=== PATIENT | male | born 1945 | race Caucasian/White ===

== ENCOUNTER 2019-11-05 10:57 | Emergency (ER) | payer MEDICARE ==
[2019-11-05] MEDS ORDERED: SODIUM CHLORIDE 0.9% 500 ML 500 ML IV STA (11:36)
[2019-11-05 11:44] LABS: Appearance,Urine Clear (Clear); Bacteria,Urine Rare /hpf; Bilirubin,Urine Negative (Negative); Blood,Urine Trace (Negative); Color,Urine Yellow; Glucose,Urine (UA) Negative (Negative); Ketones,Urine Negative (Negative); Leukocyte Esterase,Urine Negative (Negative); Mucus,Urine Rare /hpf; Nitrite,Urine Negative (Negative); Protein,Urine 1+ (Negative); RBC,Urine 4 /hpf (0-5); Specific Gravity,Urine 1.018 (1.001-1.035); Urobilinogen,Urine <2.0 mg/dL (<2.0); WBC,Urine <1 /hpf (0-5)
[2019-11-05 12:13] LABS: Basophils # (A) 0.1 k/uL (0-0.2); Basophils % (A) 1 %; Eosinophils # (A) 0.2 k/uL (0-0.7); Eosinophils % (A) 3 %; HCT 44.7 % (39.0-53.0); HGB 15.1 gm/dL (13.0-17.5); Lymphocytes # (A) 1.6 k/uL (1.0-4.8); Lymphocytes % (A) 19 %; MCH 31.7 pg (25.0-35.0); MCHC 33.8 g/dL (31.0-37.0); MCV 93.9 fL (80.0-100.0); Mean Platelet Volume 7.1; Monocytes # (A) 0.5 k/uL (0-1.0); Monocytes % (A) 6 %; Neutrophils # (A) 6.2 k/uL (1.3-7.7); Neutrophils % (A) 71 %; Platelet Count 259 k/uL (150-450); RBC 4.76 m/uL (4.30-5.90); RDW 13.3 % (11.5-15.5); WBC 8.7 k/uL (3.8-10.6)
[2019-11-05 12:19] LABS: Albumin 4.3 g/dL (3.5-5.0); Calcium 9.5 mg/dL (8.4-10.2); Potassium 4.4 mmol/L (3.5-5.1); Total Bilirubin 0.5 mg/dL (0.2-1.3); Total Protein 7.7 g/dL (6.3-8.2)
--- NOTE | 2019-11-05 12:35 | XR ---
EXAMINATION TYPE: XR chest 1V, XR skull complete, XR abdomen 1V DATE OF EXAM: 11/05/2019 COMPARISON: NONE HISTORY: 74-year-old male shunt study, weakness and fatigue discoloration TECHNIQUE: Single frontal view of the chest is obtained. FINDINGS: Skull: There is a right-sided frontoparietal shunt. The tip appears just to the left of midline in the centr al and frontal region. Radiolucent segments of the shunt system along the right lateral calvarium. Re mainder of the shunt catheter appears intact. Abandoned fragment of a shunt catheter along the right posterolateral aspect of the neck. Posterior cervical fusion hardware. CHEST: Heart normal size. Elongation/ectasia of the thoracic aorta. Diffuse interstitial prominence of a chr onic appearance. No consolidation or pleural effusion. Abandoned shunt catheter fragment extending do wn the right base of the neck and upper to mid thorax. The viable shunt catheter courses down the rig ht side of the thorax and then extends to the midline at the lower thorax. ABDOMEN: LEASE BROKER shunt catheter courses to the midline of the thoracoabdominal junction and down the upper to mid a bdomen and is seen looped within the pelvis. No obvious catheter discontinuity. No dilated small bowel or differential air-fluid levels. No evidence for free intraperitoneal air. Small air-fluid levels left side of the abdomen are nonspecific, probably transient. Scattered air se en throughout the colon extending distally into the rectum. L4-L5 posterior lumbar fusion hardware. IMPRESSION: 1. Right-sided frontoparietal approach LEASE BROKER shunt catheter. The tip is just to the left of midline in t he central and frontal region. 2. Catheter courses down the right side and then has a midline position at the thoracoabdominal junct ion, continuing down, and looping in the pelvis. 3. Additional abandoned shunt catheter fragment along the right side of the neck and upper right pamella thorax.
--- NOTE | 2019-11-05 12:42 | ED ---
General Adult HPI - General Chief complaint: Urogenital Stated complaint: possible UTI/lower extremity issues Time Seen by Provider: 11/05/19 11:05 Source: patient Mode of arrival: wheelchair Limitations: no limitations - History of Present Illness Initial comments: The patient is a 74-year-old male with past medical history of depression, urinary tract infections and normal pressure hydrocephalus with shunt placement who presents to the emergency department with reported worsening confusion and balance issues. The patient's son is at bedside and helps provide history. He states that his father was hospitalized in September with similar symptoms. They found that he had a urinary tract infection. He does have incontinence issues and wears depends. Frequently does not change them because he has significant depression. He was hospitalized and then went to rehab. Son states that since he has been home for the past several weeks he seen a significant decline in his father status. States that he hasn't been out of bed, eaten or showered. He went to check on his father today and noted that he had significant discoloration to his feet. There were purple in color and cold to the touch. His father reported some paresthesias in his lower extremities however states that it has since gone away. Denies previous history of this in the past. The patient currently denies any pain. Not oriented as far as the month. Patient does feel somewhat confused. Denies any headaches or visual changes currently. No nausea or vomiting. Denies any chest pain or shortness of breath. No abdominal pain. Denies back or flank pain. No fevers or chills. Denies cough. Does admit to some dysuria. Denies hematuria or difficulty voiding. Denies diarrhea, constipation, melenic stools or hematochezia. The patient does live alone and states he is significantly depressed. Son reports hospitalization multiple times at psychiatric facilities - Related Data Home Medications Medication Instructions Recorded Confirmed Acetaminophen Tab [Tylenol] 650 mg PO Q6H PRN 11/05/19 11/05/19 Alfuzosin HCl [Alfuzosin HCl ER] 10 mg PO DAILY 11/05/19 11/05/19 Docusate [Colace] 100 mg PO DAILY 11/05/19 11/05/19 Escitalopram [Lexapro] 10 mg PO DAILY 11/05/19 11/05/19 Famotidine [Pepcid] 40 mg PO DAILY 11/05/19 11/05/19 Gabapentin [Neurontin] 100 mg PO DAILY 11/05/19 11/05/19 Lidocaine 5% Patch [Lidoderm] 1 patch TOPICAL DAILY 11/05/19 11/05/19 Losartan [Cozaar] 25 mg PO DAILY 11/05/19 11/05/19 Menthol-Zinc Oxide Oint 1 applic TOPICAL DAILY PRN 11/05/19 11/05/19 [Calmoseptine Oint] Methocarbamol [Robaxin] 750 mg PO Q8H 11/05/19 11/05/19 Multivitamins, Thera [Multivitamin 1 tab PO DAILY 11/05/19 11/05/19 (formulary)] Tamsulosin [Flomax] 0.4 mg PO DAILY 11/05/19 11/05/19 Zolpidem [Ambien] 10 mg PO HS PRN 11/05/19 11/05/19 traMADol HCL 50 mg PO Q4H PRN 11/05/19 11/05/19 Allergies Allergy/AdvReac Type Severity Reaction Status Date / Time No Known Allergies Allergy Verified 11/05/19 12:03 Review of Systems ROS Statement: Those systems with pertinent positive or pertinent negative responses have been documented in the HPI. ROS Other: All systems not noted in ROS Statement are negative. Past Medical History Past Medical History: Hypertension Additional Past Medical History / Comment(s): neuropathy History of Any Multi-Drug Resistant Organisms: None Reported Additional Past Surgical History / Comment(s): brain shunt, neck fusion Past Psychological History: Depression Smoking Status: Never smoker Past Alcohol Use History: None Reported Past Drug Use History: None Reported General Exam Limitations: no limitations General appearance: alert, in no apparent distress Head exam: Present: atraumatic, normocephalic, normal inspection Eye exam: Present: normal appearance, PERRL, EOMI. Absent: scleral icterus, conjunctival injection, periorbital swelling ENT exam: Present: normal exam, mucous membranes moist Neck exam: Present: normal inspection. Absent: tenderness, meningismus, lymph adenopathy Respiratory exam: Present: normal lung sounds bilaterally. Absent: respiratory distress, wheezes, rales, rhonchi, stridor Cardiovascular Exam: Present: regular rate, normal rhythm, normal heart sounds. Absent: systolic murmur, diastolic murmur, rubs, gallop, clicks GI/Abdominal exam: Present: soft, normal bowel sounds. Absent: distended, tenderness, guarding, rebound, rigid Extremities exam: Present: normal inspection, full ROM, normal capillary refill. Absent: tenderness, pedal edema, joint swelling, calf tenderness Back exam: Present: normal inspection Neurological exam: Present: alert, oriented X3, CN II-XII intact Psychiatric exam: Present: normal affect, normal mood Skin exam: Present: warm, dry, intact, normal color. Absent: rash Course Vital Signs 11/05/19 11/05/19 11/05/19 11:02 11:58 12:00 Temperature 97.7 F Pulse Rate 88 74 79 Respiratory 18 19 18 Rate Blood Pressure 208/125 163/97 O2 Sat by Pulse 99 97 95 Oximetry 11/05/19 11/05/19 11/05/19 12:30 13:00 13:30 Temperature Pulse Rate 81 82 80 Respiratory 17 17 18 Rate Blood Pressure 178/102 146/90 165/109 O2 Sat by Pulse 98 97 96 Oximetry 11/05/19 11/05/19 11/05/19 14:00 14:30 14:31 Temperature 98.5 F Pulse Rate 70 82 80 Respiratory 16 16 18 Rate Blood Pressure 177/99 176/104 183/106 O2 Sat by Pulse 97 99 99 Oximetry 11/05/19 11/05/19 11/05/19 15:00 15:30 16:00 Temperature Pulse Rate 75 73 71 Respiratory 15 17 18 Rate Blood Pressure 183/106 176/92 176/108 O2 Sat by Pulse 96 96 98 Oximetry 11/05/19 11/05/19 16:30 17:23 Temperature Pulse Rate 72 71 Respiratory 7 L 18 Rate Blood Pressure 170/102 170/98 O2 Sat by Pulse 97 98 Oximetry EKG Findings - EKG Comments: EKG Findings:: EKG demonstrates normal sinus rhythm with a ventricular rate of 77. Urine of 160. QRS 78. QTC of 452. Inverted T-wave in lead 3. No acute ST segment elevations. Medical Decision Making - Medical Decision Making Upon arrival the patient was placed in room 11. A thorough history and physical exam was performed. Laboratory studies were conducted. The patient went for a shunt study, CT of his brain and a CT of his abdomen and pelvis with runoff because of his reported paresthesias and purple discoloration of his lower extremities. Laboratory studies demonstrate a creatinine of 1.3. Urinalysis shows rare bacteria. Shunt series demonstrates that the shunt appears to be appropriate position. CT of the brain demonstrates severe hydrocephalus with concern for malfunctioning shunt. CT of the lower extremity demonstrates anterior tibial artery becomes severely diminutive just above the ankle, probably artery becomes negative of the distal third leg. Runoff via the posterior tibial artery of the posterior tibial arteries no longer seen at the hindfoot level. Patient does have good palpable pulses. I discussed the case with the patient. He did have his shunt originally placed at [facility] by Dr. Lana Barahona. I called and discussed the case with [facility] and they state that Dr. Barahona is not on staff and all other cases go to [facility]. I called and discussed case with [facility] at 2:30 pm they are calling their medical team to see if it's okay to accept the transfer the patient. Call was returned from [facility] at 3:20 pm. I spoke with Dr. Balaji Robert who is a neurosurgeon at their facility. He denies transfer the patient. He states that he is not concerned about the patient symptoms and the patient should go home and follow up in office. He does review CT scans from August of this year that he has availability to it at his facility. He states the patient has always had extreme hydrocephalus. He states he is not concerned about the patient's new symptoms. I discussed this with the patient's family. I at this time then called [facility] to discuss possible transfer with them. They state they are not accepting any ER transfers. At 4:13 pm we are attempting to contact Dr. Barahona directly. We did page Dr. Barahona for a second time at 4:50 PM. She does return my phone call at [phone]. I discussed the case with her. She does recommend that the best option would be The patient follow up in office. She states that she does not believe that the patient's shunt is not functioning as he always does have severe hydrocephalus. She does not want to transfer the patient is [facility] because of the covid outbreak. I discussed this with the patient's family. They are agreeable to discharge home and follow up in office tomorrow with Dr. Barahona. I informed them that if the patient is evaluated and it is deemed that the patient's symptoms are not due to the shunt but the patient is still having issues that he should return back to her hospital for admission and possible rehab. The patient and his son were on board with this. The patient was given a dose of Rocephin further rare bacteria in his urine. He is discharged home in stable condition - Lab Data Result diagrams: 11/05/19 11:57 11/05/19 11:57 Lab Results 11/05/19 11/05/19 11/05/19 Range/Units 11:33 11:57 11:57 WBC 8.7 (3.8-10.6) k/uL RBC 4.76 (4.30-5.90) m/uL Hgb 15.1 (13.0-17.5) gm/dL Hct 44.7 (39.0-53.0) % MCV 93.9 (80.0-100.0) fL MCH 31.7 (25.0-35.0) pg MCHC 33.8 (31.0-37.0) g/dL RDW 13.3 (11.5-15.5) % Plt Count 259 (150-450) k/uL Neutrophils % 71 % Lymphocytes % 19 % Monocytes % 6 % Eosinophils % 3 % Basophils % 1 % Neutrophils # 6.2 (1.3-7.7) k/uL Lymphocytes # 1.6 (1.0-4.8) k/uL Monocytes # 0.5 (0-1.0) k/uL Eosinophils # 0.2 (0-0.7) k/uL Basophils # 0.1 (0-0.2) k/uL Sodium 139 (137-145) mmol/L Potassium 4.4 (3.5-5.1) mmol/L Chloride 107 (98-107) mmol/L Carbon Dioxide 23 (22-30) mmol/L Anion Gap 9 mmol/L BUN 25 H (9-20) mg/dL Creatinine 1.30 H (0.66-1.25) mg/dL Est GFR (CKD-EPI)AfAm 63 (>60 ml/min/1.73 sqM) Est GFR (CKD-EPI)NonAf 54 (>60 ml/min/1.73 sqM) Glucose 101 H (74-99) mg/dL Plasma Lactic Acid Deon (0.7-2.0) mmol/L Calcium 9.5 (8.4-10.2) mg/dL Total Bilirubin 0.5 (0.2-1.3) mg/dL AST 17 (17-59) U/L ALT 12 (4-49) U/L Alkaline Phosphatase 73 (38-126) U/L Creatine Kinase 53 L (55-170) U/L Total Protein 7.7 (6.3-8.2) g/dL Albumin 4.3 (3.5-5.0) g/dL Urine Color Yellow Urine Appearance Clear (Clear) Urine pH 6.0 (5.0-8.0) Ur Specific [place] 1.018 (1.001-1.035) Urine Protein 1+ H (Negative) Urine Glucose (UA) Negative (Negative) Urine Ketones Negative (Negative) Urine Blood Trace H (Negative) Urine Nitrite Negative (Negative) Urine Bilirubin Negative (Negative) Urine Urobilinogen <2.0 (<2.0) mg/dL Ur Leukocyte Esterase Negative (Negative) Urine RBC 4 (0-5) /hpf Urine WBC <1 (0-5) /hpf Urine Bacteria Rare H (None) /hpf Urine Mucus Rare H (None) /hpf 11/05/19 Range/Units 11:57 WBC (3.8-10.6) k/uL RBC (4.30-5.90) m/uL Hgb (13.0-17.5) gm/dL Hct (39.0-53.0) % MCV (80.0-100.0) fL MCH (25.0-35.0) pg MCHC (31.0-37.0) g/dL RDW (11.5-15.5) % Plt Count (150-450) k/uL Neutrophils % % Lymphocytes % % Monocytes % % Eosinophils % % Basophils % % Neutrophils # (1.3-7.7) k/uL Lymphocytes # (1.0-4.8) k/uL Monocytes # (0-1.0) k/uL Eosinophils # (0-0.7) k/uL Basophils # (0-0.2) k/uL Sodium (137-145) mmol/L Potassium (3.5-5.1) mmol/L Chloride (98-107) mmol/L Carbon Dioxide (22-30) mmol/L Anion Gap mmol/L BUN (9-20) mg/dL Creatinine (0.66-1.25) mg/dL Est GFR (CKD-EPI)AfAm (>60 ml/min/1.73 sqM) Est GFR (CKD-EPI)NonAf (>60 ml/min/1.73 sqM) Glucose (74-99) mg/dL Plasma Lactic Acid Deon 1.1 (0.7-2.0) mmol/L Calcium (8.4-10.2) mg/dL Total Bilirubin (0.2-1.3) mg/dL AST (17-59) U/L ALT (4-49) U/L Alkaline Phosphatase (38-126) U/L Creatine Kinase (55-170) U/L Total Protein (6.3-8.2) g/dL Albumin (3.5-5.0) g/dL Urine Color Urine Appearance (Clear) Urine pH (5.0-8.0) Ur Specific [place] (1.001-1.035) Urine Protein (Negative) Urine Glucose (UA) (Negative) Urine Ketones (Negative) Urine Blood (Negative) Urine Nitrite (Negative) Urine Bilirubin (Negative) Urine Urobilinogen (<2.0) mg/dL Ur Leukocyte Esterase (Negative) Urine RBC (0-5) /hpf Urine WBC (0-5) /hpf Urine Bacteria (None) /hpf Urine Mucus (None) /hpf Disposition Clinical Impression: Weakness, Hydrocephalus Disposition: HOME SELF-CARE Condition: Stable Instructions (If sedation given, give patient instructions): Weakness (ED) Additional Instructions: Please call to make an appointment with Dr. Barahona and see her in office tomorrow. Return to the emergency room if you have any new or worsening symptoms Is patient prescribed a controlled substance at d/c from ED?: No Referrals: Shiva Naylor MD [Primary Care Provider] - 1-2 days Time of Disposition: 17:05
--- NOTE | 2019-11-05 13:03 | CT ---
EXAMINATION TYPE: CT brain wo con DATE OF EXAM: 11/05/2019 COMPARISON: None available HISTORY: 74-year-old male History of shunt and weakness. Discoloration of feet TECHNIQUE: Examination was done in axial plane without intravenous contrast. Coronal and sagittal r econstructions performed. CT DLP: 1208.4 mGycm Automated exposure control for dose reduction was used. FINDINGS: Right frontal approach PEEL OVEN TENDER shunt catheter. The tip of the catheter crosses the midline and is within t he anterior body of the left lateral ventricle. There is severe hydro-Cephalus but without midline sh ift. No effacement of basal subarachnoid cisterns. Maya-white matter differentiation is maintained. No herniation is seen. No evidence for acute intracranial hemorrhage or extra axial fluid collection . Some frothy partial opacification dependent within the right maxillary sinus. Mastoid air cells well pneumatized. Orbits and globes are intact. IMPRESSION: 1. Right-sided PEEL OVEN TENDER shunt catheter. Tip of the catheter is within the anterior body of the left lateral ventricle. 2. Severe hydrocephalus is present. Correlate for possible shunt dysfunction. Compare to any availabl e outside priors to assess changes. 3. No acute intracranial hemorrhage or midline shift.
--- NOTE | 2019-11-05 13:39 | CT ---
EXAMINATION TYPE: CT angio abd aorta w/Runoff DATE OF EXAM: 11/05/2019 COMPARISON: None HISTORY: 74-year-old male lower extremity discoloration, paresthesias. TECHNIQUE: Contiguous axial scanning of the abdomen and pelvis with bilateral lower sternum and a run off performed without and with IV Contrast, patient injected with 80 mL of Isovue 370. Coronal/sagitt al MIP reconstructions performed. 3-D reconstructions generated on a dedicated independent workstatio n. CT DLP: 1616.5 mGycm Automated exposure control for dose reduction was used. FINDINGS: Abdomen: Heart normal size without pericardial effusion. 6 mm subpleural pulmonary nodule peripheral left base warrants follow-up. No pleural effusion. Strand y areas of probable atelectasis are present. Noncontrast and arterial phase imaging shows no gross abnormality of the liver, gallbladder, adrenal glands, spleen, pancreas. Multiple hepatic cysts are present measuring up to 3.1 cm. Additional subcentimeter cortical hypodens ities are too small for accurate CT characterization, likely representing additional cortical cysts. Some renal cortical thinning suggests underlying chronic medical renal disease. No dilated small bowel, free fluid, or free air. No mesenteric or retroperitoneal lymphadenopathy. Mild stool burden. Sigmoid diverticulosis. Redundant sigmoid colon. No pericolonic inflammatory hawkins e. PELVIS: Visualized shunt catheter coursing down the right paramedian anterior midline. Entering the abdominal cavity near the umbilical level and looped within the pelvis. No abnormal fluid collection seen at t he tip of the catheter. Mild pelvic free fluid likely relates to the presence of the VARNISHING UNIT TOOL SETTER shunt. Mild bladder wall thickening. Prostatomegaly of 5.4 cm wide. Focus of heterogeneous enhancement withi n the right side of the prostate gland measuring 1.8 cm, axial image 131. No pelvic lymphadenopathy s een. BONES: Mild degenerative changes of the hips. Degenerative changes bilateral SI joints. Postsurgical changes of L4-L5 posterior fusion with laminectomies. Advanced degenerative disc disease throughout the yanna ining lumbar spine with facet arthropathy. Likely moderate spinal canal stenosis at multiple levels. Chronic appearing superior endplate deformity T11 vertebral body. VASCULATURE: Vascular calcifications are present throughout the lower extremities. Abdominal aorta is normal caliber without ectasia or aneurysm. Basilar artery are patent. Right: Right common and external iliac arteries are patent. Common femoral arteries patent. Mild atherosclerotic calcifications throughout the superficial femoral artery with irregular atherosc lerotic plaque noted but no significant narrowing. Mild atherosclerotic change popliteal artery without stenosis. Mild atherosclerotic narrowing at the origin of the anterior tibial artery. Atherosclerotic wall calc ifications are present throughout. Moderate focal stenosis upper tibial peroneal trunk, axial image 306. Scattered mild atherosclerotic narrowing throughout the runoff vessels. Anterior tibial artery become s severely diminutive just above the ankle. Peroneal artery becomes diminutive distal third leg. There is runoff via the posterior tibial artery but the posterior tibial artery is no longer seen at the hindfoot level. Left: The common and external iliac arteries are patent. Common femoral artery is patent. Mild atherosclerotic calcifications throughout the superficial femoral artery. No significant stenosi s. Popliteal artery is patent. Atherosclerotic wall calcifications are present throughout. Anterior tibial artery origin is patent. Mild focal atherosclerotic narrowing upper tibial peroneal trunk and origin of the posterior tibial a rtery. Scattered mild atherosclerotic narrowing is present throughout the runoff vessels. Anterior tibial artery is no longer visualized at the mid leg level. Peroneal artery becomes diminutive at the distal third leg. Posterior tibial artery becomes diminutive and loses opacification just above the ankle. IMPRESSION: ABDOMEN/PELVIS: 1. 6 MM LEFT BASILAR PULMONARY NODULE. THREE-MONTH FOLLOW-UP CONTRAST ENHANCED CT CHEST RECOMMENDED T O REASSESS AND SURVEY REMAINDER OF THE LUNGS. 2. Sigmoid diverticulosis. VARNISHING UNIT TOOL SETTER shunt catheter looped in the pelvis. No abnormal fluid collection at th e tip of the catheter. Mild pelvic ascites noted. 3. Prostatomegaly, possible BPH given bladder wall thickening. Correlate to exclude cystitis. However , further correlation recommended to exclude a 1.7 cm focus of prostate cancer within the right side of the prostate gland given heterogeneous focal enhancement. RIGHT: 4. Mild atherosclerotic calcifications and some irregular plaque throughout the SFA without significa nt narrowing. 5. Moderate focal stenosis upper tibial peroneal trunk and scattered mild atelectatic narrowing throu ghout the runoff vessels. 6. Anterior tibial artery becomes severely diminutive just above the ankle, peroneal artery becomes d iminutive distal third leg, and there is runoff via the posterior tibial artery but the posterior tib ial arteries no longer seen at the hindfoot level. LEFT: 7. Atherosclerotic wall calcifications are present throughout. Mild focal stenosis upper tibioperonea l trunk and origin of the posterior tibial artery. 8. Anterior tibial artery is no longer visualized at the mid leg level, peroneal artery diminutive at the distal third leg, and posterior tibial artery becomes diminutive and loses opacification just ab ove the ankle.
[2019-11-05 14:33] VITALS: TEMP 98.5
[2019-11-05] MEDS ORDERED: LOSARTAN 25 MG TAB PO STA (14:35)
[2019-11-05] MEDS ORDERED: cefTRIAXone IN SWFI 1,000 MG/10 ML SYRINGE IVP STA (17:06)
[2019-11-05 17:24] VITALS: BP 170/98; PULSE 71; RESP 18
== END 2019-11-05 17:16 | disposition home or self-care (01) ==
LOC: EC 10:57
DX: G91.9 Hydrocephalus, unspecified (principal); R53.1 Weakness; R20.2 Paresthesia of skin; R23.8 Other skin changes; R82.71 Bacteriuria; R30.0 Dysuria; I10 Essential (primary) hypertension; G62.9 Polyneuropathy, unspecified; F32.9 Major depressive disorder, single episode, unspecified; Z98.2 Presence of cerebrospinal fluid drainage device; Z79.899 Other long term (current) drug therapy
CPT/HCPCS: 99285; 96374; 96361; 36415; 93005; 80053; 82550; 83605; 85025; 81001; 70260; 71045; 74018; 70450; 75635; J0696; Q9967

== ENCOUNTER 2019-12-06 11:56 | Emergency (ER) | payer MEDICARE ==
[2019-12-06 12:02] VITALS: RESP 18; TEMP 97.9
[2019-12-06] MEDS ORDERED: hydrALAZINE HCL 20 MG/ML 1 ML VIAL IVP STA (12:29)
[2019-12-06] MEDS ORDERED: SODIUM CHLORIDE 0.9% 500 ML 500 ML IV STA (12:29)
--- NOTE | 2019-12-06 12:38 | ED ---
General Adult HPI - General Chief complaint: Weakness Stated complaint: Weakness Time Seen by Provider: 12/06/19 12:00 Source: patient, RN notes reviewed, old records reviewed Mode of arrival: wheelchair Limitations: no limitations - History of Present Illness Initial comments: This is a 74-year-old male who presents emergency department with his son. Patient has a history of hydrocephalus. Patient had a shunt placed when he was young. Patient lost his about 4 years ago and ever since then he has been dealing with generalized weakness the feeling that he does not want to be alive though he is not suicidal and being off balance occasionally falling. Patient was put in a rehab facility and was discharged in September and since then he continues to be weak off balance and occasionally falling. A month ago he was seen in emergency department and he did follow-up since then with his neurosurgeon and they don't believe it has anything to do with his hydrocephalus or his cervical fusion. Because patient's symptoms have not resolved their primary doctor wanted the patient to be evaluated in the emergency room and possibly admitted for neurology consult. Patient does not complain of any specific neurological complaints just generalized weakness. Patient also states he does not eat properly and he does not take his blood pressure medications and he was tried on some antidepressants which she refused to take as well. Patient again is not suicidal but he does wish that he would just because he feels as though he be better off. - Related Data Home Medications Medication Instructions Recorded Confirmed Acetaminophen Tab [Tylenol] 650 mg PO Q6H PRN 11/05/19 12/06/19 Alfuzosin HCl [Alfuzosin HCl ER] 10 mg PO DAILY 11/05/19 12/06/19 Docusate [Colace] 100 mg PO DAILY 11/05/19 12/06/19 Escitalopram [Lexapro] 10 mg PO DAILY 11/05/19 12/06/19 Famotidine [Pepcid] 40 mg PO DAILY 11/05/19 12/06/19 Gabapentin [Neurontin] 100 mg PO DAILY 11/05/19 12/06/19 Lidocaine 5% Patch [Lidoderm] 1 patch TOPICAL DAILY 11/05/19 12/06/19 Losartan [Cozaar] 25 mg PO DAILY 11/05/19 12/06/19 Menthol-Zinc Oxide Oint 1 applic TOPICAL DAILY PRN 11/05/19 12/06/19 [Calmoseptine Oint] Methocarbamol [Robaxin] 750 mg PO Q8H 11/05/19 12/06/19 Multivitamins, Thera [Multivitamin 1 tab PO DAILY 11/05/19 12/06/19 (formulary)] Tamsulosin [Flomax] 0.4 mg PO DAILY 11/05/19 12/06/19 Zolpidem [Ambien] 10 mg PO HS PRN 11/05/19 12/06/19 traMADol HCL 50 mg PO Q4H PRN 11/05/19 12/06/19 Previous Rx's Medication Instructions Recorded Sulfamethox-Tmp 800-160Mg [Bactrim 1 each PO Q12HR #20 tab 12/06/19 DS 800-160 mg] Allergies Allergy/AdvReac Type Severity Reaction Status Date / Time No Known Allergies Allergy Verified 12/06/19 13:19 Review of Systems ROS Statement: Those systems with pertinent positive or pertinent negative responses have been documented in the HPI. ROS Other: All systems not noted in ROS Statement are negative. Past Medical History Past Medical History: Hypertension Additional Past Medical History / Comment(s): neuropathy, hydrocephalus History of Any Multi-Drug Resistant Organisms: None Reported Past Surgical History: Back Surgery Additional Past Surgical History / Comment(s): brain shunt, neck fusion Past Psychological History: Depression Smoking Status: Never smoker Past Alcohol Use History: None Reported Past Drug Use History: None Reported General Exam - General Exam Comments Initial Comments: GENERAL: Patient is well-developed and well-nourished. Patient is nontoxic and well- hydrated and is in no acute distress. ENT: Neck is soft and supple. No significant lymphadenopathy is noted. Oropharynx is clear. Moist mucous membranes. Neck has full range of motion without eliciting any pain. EYES: The sclera were anicteric and conjunctiva were pink and moist. Extraocular movements were intact and pupils were equal round and reactive to light. Eyelids were unremarkable. PULMONARY: Unlabored respirations. Good breath sounds bilaterally. CARDIOVASCULAR: There is a regular rate and rhythm without any murmurs gallops or rubs. ABDOMEN: Soft and nontender with normal bowel sounds. SKIN: Skin is clear with no lesions or rashes and otherwise unremarkable. NEUROLOGIC: Patient is alert and oriented x3. Cranial nerves II through XII are grossly intact. Motor and sensory are also intact. Normal speech, volume and content. Symmetrical smile. Cerebellar exam grossly intact. MUSCULOSKELETAL: Normal extremities with adequate strength and full range of motion. No lower extremity swelling or edema. No calf tenderness. LYMPHATICS: No significant lymphadenopathy is noted PSYCHIATRIC: Patient is depressed and states he rather be but he is absolutely against suicide it is not suicidal. Limitations: no limitations Course Vital Signs 12/06/19 12/06/19 12/06/19 11:58 12:09 12:30 Temperature 97.9 F Pulse Rate 64 70 Respiratory 18 18 Rate Blood Pressure 176/93 189/107 O2 Sat by Pulse 98 98 98 Oximetry 12/06/19 12/06/19 12/06/19 12:56 13:00 13:19 Temperature Pulse Rate 66 65 Respiratory 18 20 Rate Blood Pressure 188/104 188/104 186/105 O2 Sat by Pulse 99 100 Oximetry 12/06/19 12/06/19 13:30 14:00 Temperature Pulse Rate 87 82 Respiratory 20 18 Rate Blood Pressure 186/105 156/92 O2 Sat by Pulse 99 97 Oximetry Medical Decision Making - Medical Decision Making EKG shows normal sinus rhythm at 60 bpm FL interval 158 QRSs 84 QT interval 414 QTC is 440. Patient's EKG shows no ST segment elevation or depression - Lab Data Result diagrams: 12/06/19 12:50 12/06/19 14:30 Lab Results 12/06/19 12/06/19 12/06/19 Range/Units 12:50 12:50 12:50 WBC 9.9 (3.8-10.6) k/uL RBC 4.87 (4.30-5.90) m/uL Hgb 14.8 (13.0-17.5) gm/dL Hct 46.4 (39.0-53.0) % MCV 95.3 (80.0-100.0) fL MCH 30.4 (25.0-35.0) pg MCHC 31.8 (31.0-37.0) g/dL RDW 13.6 (11.5-15.5) % Plt Count 270 (150-450) k/uL Neutrophils % 71 % Lymphocytes % 19 % Monocytes % 6 % Eosinophils % 2 % Basophils % 1 % Neutrophils # 7.0 (1.3-7.7) k/uL Lymphocytes # 1.8 (1.0-4.8) k/uL Monocytes # 0.6 (0-1.0) k/uL Eosinophils # 0.2 (0-0.7) k/uL Basophils # 0.1 (0-0.2) k/uL PT 10.2 (9.0-12.0) sec INR 1.0 (<1.2) APTT 25.1 (22.0-30.0) sec Sodium Cancelled Potassium Cancelled Chloride Cancelled Carbon Dioxide Cancelled Anion Gap Cancelled BUN Cancelled Creatinine Cancelled Est GFR (CKD-EPI)AfAm Cancelled Est GFR (CKD-EPI)NonAf Cancelled Glucose Cancelled Plasma Lactic Acid Deon (0.7-2.0) mmol/L Calcium Cancelled Magnesium Cancelled Total Bilirubin Cancelled AST Cancelled ALT Cancelled Alkaline Phosphatase Cancelled Troponin I (0.000-0.034) ng/mL Total Protein Cancelled Albumin Cancelled TSH 1.320 (0.465-4.680) mIU/L Urine Color Urine Appearance (Clear) Urine pH (5.0-8.0) Ur Specific [place] (1.001-1.035) Urine Protein (Negative) Urine Glucose (UA) (Negative) Urine Ketones (Negative) Urine Blood (Negative) Urine Nitrite (Negative) Urine Bilirubin (Negative) Urine Urobilinogen (<2.0) mg/dL Ur Leukocyte Esterase (Negative) Urine RBC (0-5) /hpf Urine WBC (0-5) /hpf Urine WBC Clumps (None) /hpf Urine Bacteria (None) /hpf 12/06/19 12/06/19 12/06/19 Range/Units 12:50 12:50 13:00 WBC (3.8-10.6) k/uL RBC (4.30-5.90) m/uL Hgb (13.0-17.5) gm/dL Hct (39.0-53.0) % MCV (80.0-100.0) fL MCH (25.0-35.0) pg MCHC (31.0-37.0) g/dL RDW (11.5-15.5) % Plt Count (150-450) k/uL Neutrophils % % Lymphocytes % % Monocytes % % Eosinophils % % Basophils % % Neutrophils # (1.3-7.7) k/uL Lymphocytes # (1.0-4.8) k/uL Monocytes # (0-1.0) k/uL Eosinophils # (0-0.7) k/uL Basophils # (0-0.2) k/uL PT (9.0-12.0) sec INR (<1.2) APTT (22.0-30.0) sec Sodium Potassium Chloride Carbon Dioxide Anion Gap BUN Creatinine Est GFR (CKD-EPI)AfAm Est GFR (CKD-EPI)NonAf Glucose Plasma Lactic Acid Deon 1.7 (0.7-2.0) mmol/L Calcium Magnesium Total Bilirubin AST ALT Alkaline Phosphatase Troponin I <0.012 (0.000-0.034) ng/mL Total Protein Albumin TSH (0.465-4.680) mIU/L Urine Color Yellow Urine Appearance Cloudy (Clear) Urine pH 6.0 (5.0-8.0) Ur Specific [place] 1.015 (1.001-1.035) Urine Protein 1+ H (Negative) Urine Glucose (UA) Negative (Negative) Urine Ketones Negative (Negative) Urine Blood Small H (Negative) Urine Nitrite Negative (Negative) Urine Bilirubin Negative (Negative) Urine Urobilinogen <2.0 (<2.0) mg/dL Ur Leukocyte Esterase Large H (Negative) Urine RBC 6 H (0-5) /hpf Urine WBC >182 H (0-5) /hpf Urine WBC Clumps Moderate H (None) /hpf Urine Bacteria Many H (None) /hpf 12/06/19 Range/Units 14:30 WBC (3.8-10.6) k/uL RBC (4.30-5.90) m/uL Hgb (13.0-17.5) gm/dL Hct (39.0-53.0) % MCV (80.0-100.0) fL MCH (25.0-35.0) pg MCHC (31.0-37.0) g/dL RDW (11.5-15.5) % Plt Count (150-450) k/uL Neutrophils % % Lymphocytes % % Monocytes % % Eosinophils % % Basophils % % Neutrophils # (1.3-7.7) k/uL Lymphocytes # (1.0-4.8) k/uL Monocytes # (0-1.0) k/uL Eosinophils # (0-0.7) k/uL Basophils # (0-0.2) k/uL PT (9.0-12.0) sec INR (<1.2) APTT (22.0-30.0) sec Sodium 142 Potassium 4.6 Chloride 108 H Carbon Dioxide 24 Anion Gap 10 BUN 33 H Creatinine 1.29 H Est GFR (CKD-EPI)AfAm 63 Est GFR (CKD-EPI)NonAf 55 Glucose 85 Plasma Lactic Acid Deon (0.7-2.0) mmol/L Calcium 9.2 Magnesium 2.2 Total Bilirubin 0.2 AST 17 ALT 11 Alkaline Phosphatase 71 Troponin I (0.000-0.034) ng/mL Total Protein 7.2 Albumin 4.0 TSH (0.465-4.680) mIU/L Urine Color Urine Appearance (Clear) Urine pH (5.0-8.0) Ur Specific [place] (1.001-1.035) Urine Protein (Negative) Urine Glucose (UA) (Negative) Urine Ketones (Negative) Urine Blood (Negative) Urine Nitrite (Negative) Urine Bilirubin (Negative) Urine Urobilinogen (<2.0) mg/dL Ur Leukocyte Esterase (Negative) Urine RBC (0-5) /hpf Urine WBC (0-5) /hpf Urine WBC Clumps (None) /hpf Urine Bacteria (None) /hpf Disposition Clinical Impression: Hypertension, Generalized weakness, Urinary tract infection Disposition: HOME SELF-CARE Condition: Good Instructions (If sedation given, give patient instructions): Urinary Tract Infection in Men (ED), Hypertension (ED) Prescriptions: Sulfamethox-Tmp 800-160Mg [Bactrim DS 800-160 mg] 1 each PO Q12HR #20 tab Is patient prescribed a controlled substance at d/c from ED?: No Referrals: Shiva Naylor MD [Primary Care Provider] - 1-2 days Time of Disposition: 15:16
[2019-12-06 13:03] LABS: Basophils # (A) 0.1 k/uL (0-0.2); Basophils % (A) 1 %; Eosinophils # (A) 0.2 k/uL (0-0.7); Eosinophils % (A) 2 %; HCT 46.4 % (39.0-53.0); HGB 14.8 gm/dL (13.0-17.5); Lymphocytes # (A) 1.8 k/uL (1.0-4.8); Lymphocytes % (A) 19 %; MCH 30.4 pg (25.0-35.0); MCHC 31.8 g/dL (31.0-37.0); MCV 95.3 fL (80.0-100.0); Monocytes # (A) 0.6 k/uL (0-1.0); Monocytes % (A) 6 %; Neutrophils % (A) 71 %; Platelet Count 270 k/uL (150-450); RBC 4.87 m/uL (4.30-5.90); RDW 13.6 % (11.5-15.5); WBC 9.9 k/uL (3.8-10.6)
[2019-12-06 13:10] LABS: Appearance,Urine Cloudy (Clear); Bacteria,Urine Many /hpf; Bilirubin,Urine Negative (Negative); Blood,Urine Small (Negative); Color,Urine Yellow; Glucose,Urine (UA) Negative (Negative); Ketones,Urine Negative (Negative); Leukocyte Esterase,Urine Large (Negative); Nitrite,Urine Negative (Negative); Protein,Urine 1+ (Negative); RBC,Urine 6 /hpf (0-5); Specific Gravity,Urine 1.015 (1.001-1.035); Urobilinogen,Urine <2.0 mg/dL (<2.0); WBC,Urine >182 /hpf (0-5)
--- NOTE | 2019-12-06 13:13 | XR ---
EXAMINATION TYPE: XR chest 2V DATE OF EXAM: 12/06/2019 COMPARISON: Weakness. HISTORY: Chest x-ray November 05, 2019. TECHNIQUE: Frontal and lateral views of the chest are obtained. FINDINGS: There is no new suspicious focal air space opacity, pleural effusion, or pneumothorax seen . Overlying right sided ventricular shunt catheter and abandoned calcified right-sided shunt catheter redemonstrated. The cardiac silhouette size remains within normal limits. Multilevel spurring in the thoracic spine again seen. IMPRESSION: No acute cardiopulmonary process. No significant change from prior.
[2019-12-06 13:15] LABS: Partial Thromboplastin Time 25.1 sec (22.0-30.0); Prothrombin Time 10.2 sec (9.0-12.0)
[2019-12-06] MEDS ORDERED: ENALAPRILAT 1.25 MG/ML 1 ML VIAL IVP STA ×2 (13:22→15:29)
[2019-12-06 14:10] VITALS: PULSE 82
[2019-12-06 14:54] LABS: Calcium 9.2 mg/dL (8.4-10.2); Magnesium 2.2 mg/dL (1.6-2.3); Potassium 4.6 mmol/L (3.5-5.1); Total Bilirubin 0.2 mg/dL (0.2-1.3); Total Protein 7.2 g/dL (6.3-8.2)
[2019-12-06 15:52] VITALS: BP 181/103
== END 2019-12-06 15:52 | disposition home or self-care (01) ==
LOC: EC 11:56
DX: I10 Essential (primary) hypertension (principal); N39.0 Urinary tract infection, site not specified; F32.9 Major depressive disorder, single episode, unspecified; Z79.899 Other long term (current) drug therapy
CPT/HCPCS: 36415; 93005; 80053; 83605; 83735; 84443; 84484; 85025; 85610; 85730; 81001; 87086; 87077; 87186; 71046; 99285; 96365; 96375 ×2; J0360; J0696

== ENCOUNTER 2023-01-08 14:13 | Emergency (ER) | payer MEDICARE, OTHER ==
[2023-01-08 14:21] VITALS: RESP 18
[2023-01-08 14:23] VITALS: TEMP 97.9
[2023-01-08] MEDS ORDERED: NITROGLYCERIN SL TABS 0.4 MG TAB SUBLINGUAL STA (15:14)
[2023-01-08] MEDS ORDERED: GLUCAGON 1 MG/ML VIAL IVP STA (15:15)
[2023-01-08 16:11] LABS: Basophils % (A) 0 %; Eosinophils # (A) 0.1 k/uL (0-0.7); Eosinophils % (A) 1 %; HCT 45.4 % (39.0-53.0); HGB 14.8 gm/dL (13.0-17.5); Lymphocytes % (A) 8 %; MCH 30.4 pg (25.0-35.0); MCHC 32.6 g/dL (31.0-37.0); MCV 93.2 fL (80.0-100.0); Mean Platelet Volume 6.9; Monocytes # (A) 0.4 k/uL (0-1.0); Monocytes % (A) 3 %; Neutrophils # (A) 10.6 k/uL (1.3-7.7); Neutrophils % (A) 87 %; Platelet Count 295 k/uL (150-450); RBC 4.87 m/uL (4.30-5.90); WBC 12.3 k/uL (3.8-10.6)
--- NOTE | 2023-01-08 16:38 | ED ---
ENT HPI - General Chief complaint: ENT Stated complaint: aspiration Source: patient, EMS Mode of arrival: EMS Limitations: physical limitation - History of Present Illness Initial comments: 77-year-old male who comes from [facility] with reported esophageal food bolus. He was eating lunch when he felt as if he got a piece of chicken in his throat. Has had this happen on multiple occasions however he normally can pass the food on his own. Denies ever having an EGD. No history of aspiration. He has been attempting to drink since the food got stuck however the patient has been unable to pass any drink. He is unable to swallow his own spit. Patient sent to the emergency department for further evaluation. He denies any respiratory distress. No other alleviating, precipitating or modifying factors - Related Data Home Medications Medication Instructions Recorded Confirmed Acetaminophen Tab [Tylenol] 650 mg PO TID@0700,1300,2000 11/05/19 09/18/22 Escitalopram [Lexapro] 10 mg PO DAILY 11/05/19 09/18/22 Artificial Tears-Hypromellose 1 drop BOTH EYES Q8H PRN 09/18/22 09/18/22 [Artificial Tear Drops] Cholecalciferol [Vitamin D3 (25 100 mcg PO DAILY@1600 09/18/22 09/18/22 Mcg = 1000 Iu)] Losartan Potassium 50 mg PO DAILY 09/18/22 09/18/22 Magnesium Hydroxide [Milk of 2,400 mg PO Q72H PRN 09/18/22 09/18/22 Magnesia] Melatonin 3 mg PO HS 09/18/22 09/18/22 Sennosides/Docusate Sodium [Senna 1 cap PO BID 09/18/22 09/18/22 Plus 8.6-50 mg Softgel] amLODIPine [Norvasc] 5 mg PO HS 09/18/22 09/18/22 Previous Rx's Medication Instructions Recorded Albuterol Nebulized [Ventolin 2.5 mg INHALATION RT-QID ml 09/22/22 Nebulized] Amoxic-Pot Clav 875-125Mg 1 tab PO Q12HR 7 Days #14 tab 09/22/22 [Augmentin 875-125] Folic Acid 1 mg PO DAILY@1200 tab 09/22/22 Gabapentin [Neurontin] 100 mg PO HS #3 cap 02/15/23 Multivitamins, Thera [Multivitamin 1 each PO DAILY@1200 tab 09/22/22 (formulary)] Thiamine [Vitamin B-1] 100 mg PO DAILY@1200 tab 09/22/22 Allergies Allergy/AdvReac Type Severity Reaction Status Date / Time No Known Allergies Allergy Verified 01/08/23 14:21 Review of Systems ROS Statement: Those systems with pertinent positive or pertinent negative responses have been documented in the HPI. ROS Other: All systems not noted in ROS Statement are negative. Past Medical History Past Medical History: CVA/TIA, Diabetes Mellitus, GERD/Reflux, Hyperlipidemia, Hypertension Additional Past Medical History / Comment(s): neuropathy, hydrocephalus, bursitis of hip, neck pain, diabetes type 2, protate mass, muscle weakness, CKD stage 3, Gout, Alzheimers, History of Any Multi-Drug Resistant Organisms: None Reported Past Surgical History: Back Surgery Additional Past Surgical History / Comment(s): brain shunt, neck fusion L3-5 Past Anesthesia/Blood Transfusion Reactions: No Reported Reaction Past Psychological History: No Psychological Hx Reported, Depression Smoking Status: Never smoker Past Alcohol Use History: None Reported Past Drug Use History: None Reported - Past Family History Father Family Medical History: No Reported History General Exam Limitations: physical limitation General appearance: alert, in no apparent distress Head exam: Present: atraumatic, normocephalic, normal inspection Eye exam: Present: normal appearance, PERRL, EOMI. Absent: scleral icterus, conjunctival injection, periorbital swelling ENT exam: Present: normal exam, mucous membranes moist Neck exam: Present: normal inspection. Absent: tenderness, meningismus, lymphadenopathy Respiratory exam: Present: normal lung sounds bilaterally. Absent: respiratory distress, wheezes, rales, rhonchi, stridor Cardiovascular Exam: Present: regular rate, normal rhythm, normal heart sounds. Absent: systolic murmur, diastolic murmur, rubs, gallop, clicks GI/Abdominal exam: Present: soft, normal bowel sounds. Absent: distended, tenderness, guarding, rebound, rigid Extremities exam: Present: normal inspection, full ROM, normal capillary refill. Absent: tenderness, pedal edema, joint swelling, calf tenderness Back exam: Present: normal inspection Neurological exam: Present: alert, oriented X3, CN II-XII intact Psychiatric exam: Present: normal affect, normal mood Skin exam: Present: warm, dry, intact, normal color. Absent: rash Course Vital Signs 01/08/23 01/08/23 14:15 17:25 Temperature 97.9 F Pulse Rate 82 75 Respiratory 18 18 Rate Blood Pressure 160/91 132/77 O2 Sat by Pulse 96 97 Oximetry Medical Decision Making - Medical Decision Making Was pt. sent in by a medical professional or institution ([facility], [employer], urgent care, hospital, or retirement...) When possible be specific @ -[facility] Did you speak to anyone other than the patient for history (EMS, parent, family, police, friend...)? What history was obtained from this source @ -EMS, staff at [facility] Did you review nursing and triage notes (agree or disagree)? Why? @ -I reviewed and agree with nursing and triage notes Were old charts reviewed (outside hosp., previous admission, EMS record, old EKG, old radiological studies, urgent care reports/EKG's, retirement records)? Report findings @ -I reviewed the patient's paperwork that came with him from his [facility] Differential Diagnosis (chest pain, altered mental status, abdominal pain women, abdominal pain men, vaginal bleeding, weakness, fever, dyspnea, syncope, headache, dizziness, GI bleed, back pain, seizure, CVA, palpatations, mental health, musculoskeletal)? @ -Esophageal food bolus, globus sensation, esophageal abrasion, esophageal web, esophageal stricture EKG interpreted by me (3pts min.). @ -Not completed X-rays interpreted by me (1pt min.). @ -None done CT interpreted by me (1pt min.). @ -None done U/S interpreted by me (1pt. min.). @ -None done What testing was considered but not performed or refused? (CT, X-rays, U/S, labs)? Why? @ -None What meds were considered but not given or refused? Why? @ -None Did you discuss the management of the patient with other professionals (professionals i.e. [facility], [employer], lab, RT, psych nurse, oncology social worker, hand candy cutter, teacher, diplomatic officer, piano case and bench assembler)? Give summary @ -No Was smoking cessation discussed for >3mins.? @ -No Was critical care preformed (if so, how long)? @ -No Were there social determinants of health that impacted care today? How? (Homelessness, low income, unemployed, alcoholism, drug addiction, transportation, low edu. Level, literacy, decrease access to med. care, fci, rehab)? @ -No Was there de-escalation of care discussed even if they declined (Discuss DNR or withdrawal of care, Hospice)? DNR status @ -No What co-morbidities impacted this encounter? (DM, HTN, Smoking, COPD, CAD, Cancer, CVA, ARF, Chemo, Hep., AIDS, mental health diagnosis, sleep apnea, morbid obesity)? @ -None Was patient admitted / discharged? Hospital course, mention meds given and route, prescriptions, significant lab abnormalities, going to OR and other pertinent info. @ -Upon arrival patient was placed into room 14. A thorough history and phy sical exam was performed. He has an IV established. He is given 1 mg of glucagon and a sublingual nitro. Patient reevaluated and is able to drink water. He is then given Jell-O and is able to tolerate this. Food bolus appears to have passed at this time. Patient stable for discharge back to his [facility] Undiagnosed new problem with uncertain prognosis? @ -Yes Drug Therapy requiring intensive monitoring for toxicity (Heparin, Nitro, Insulin, Cardizem)? @ -No Were any procedures done? @ -No Diagnosis/symptom? @ -Acute esophageal food impaction Acute, or Chronic, or Acute on Chronic? @ -Acute Uncomplicated (without systemic symptoms) or Complicated (systemic symptoms)? @ -Complicated Side effects of treatment? @ -No Exacerbation, Progression, or Severe Exacerbation? @ -No Poses a threat to life or bodily function? How? (Chest pain, [place], [place], pneumonia, PE, COPD, DKA, ARF, appy, cholecystitis, CVA, Diverticulitis, Homicidal, Suicidal, threat to staff... and all critical care pts) @ -No - Lab Data Result diagrams: 01/08/23 16:02 01/08/23 16:02 Lab Results 01/08/23 01/08/23 Range/Units 16:02 16:02 WBC 12.3 H (3.8-10.6) k/uL RBC 4.87 (4.30-5.90) m/uL Hgb 14.8 (13.0-17.5) gm/dL Hct 45.4 (39.0-53.0) % MCV 93.2 (80.0-100.0) fL MCH 30.4 (25.0-35.0) pg MCHC 32.6 (31.0-37.0) g/dL RDW 14.0 (11.5-15.5) % Plt Count 295 (150-450) k/uL MPV 6.9 Neutrophils % 87 % Lymphocytes % 8 % Monocytes % 3 % Eosinophils % 1 % Basophils % 0 % Neutrophils # 10.6 H (1.3-7.7) k/uL Lymphocytes # 1.0 (1.0-4.8) k/uL Monocytes # 0.4 (0-1.0) k/uL Eosinophils # 0.1 (0-0.7) k/uL Basophils # 0.0 (0-0.2) k/uL Sodium 140 (137-145) mmol/L Potassium 4.8 (3.5-5.1) mmol/L Chloride 108 H (98-107) mmol/L Carbon Dioxide 23 (22-30) mmol/L Anion Gap 9 mmol/L BUN 27 H (9-20) mg/dL Creatinine 1.38 H (0.66-1.25) mg/dL Est GFR (CKD-EPI)AfAm 57 (>60 ml/min/1.73 sqM) Est GFR (CKD-EPI)NonAf 49 (>60 ml/min/1.73 sqM) Glucose 122 H (74-99) mg/dL Calcium 9.2 (8.4-10.2) mg/dL Total Bilirubin 0.4 (0.2-1.3) mg/dL AST 21 (17-59) U/L ALT 18 (4-49) U/L Alkaline Phosphatase 67 (38-126) U/L Total Protein 7.4 (6.3-8.2) g/dL Albumin 4.0 (3.5-5.0) g/dL Disposition Clinical Impression: Food impaction of esophagus Disposition: HOME SELF-CARE Condition: Stable Instructions (If sedation given, give patient instructions): Esophageal Foreign Body (ED) Additional Instructions: You have been able to eat and drink in the emergency department and therefore you will be sent back to rehab. Please return should you have any new or worsening issues Is patient prescribed a controlled substance at d/c from ED?: No Referrals: Balaji Castillo DO [Primary Care Provider] - 1-2 days Time of Disposition: 16:38
[2023-01-08 17:03] LABS: Calcium 9.2 mg/dL (8.4-10.2); Potassium 4.8 mmol/L (3.5-5.1); Total Bilirubin 0.4 mg/dL (0.2-1.3); Total Protein 7.4 g/dL (6.3-8.2)
[2023-01-08 17:27] VITALS: BP 132/77; PULSE 75
== END 2023-01-08 17:27 | disposition home or self-care (01) ==
LOC: EC 14:13
DX: T18.128A Food in esophagus causing other injury, initial encounter (principal); I12.9 Hypertensive chronic kidney disease with stage 1 through stage 4 chronic kidney disease, or unspecified chronic kidney disease; N18.30 Chronic kidney disease, stage 3 unspecified; K21.9 Gastro-esophageal reflux disease without esophagitis; E11.22 Type 2 diabetes mellitus with diabetic chronic kidney disease; Z86.73 Personal history of transient ischemic attack (TIA), and cerebral infarction without residual deficits; F32.A Depression, unspecified; Z79.899 Other long term (current) drug therapy
CPT/HCPCS: 36415; 80053; 85025; 99284; 96374; J1610

== ENCOUNTER 2023-09-21 13:55 | Emergency (ER) | payer MEDICARE, OTHER ==
[2023-09-21 14:18] VITALS: BP 135/74; PULSE 94; RESP 18; TEMP 98.3
[2023-09-21] MEDS: ACETAMINOPHEN TAB 500 MG TAB PO STA (15:12)
--- NOTE | 2023-09-21 15:18 | CT ---
EXAMINATION TYPE: CT brain cspine wo con DATE OF EXAM: 09/21/2023 COMPARISON: CT head on 10/06/2022. HISTORY: Fall with head injury. CT DLP: 1660.1 mGycm Automated exposure control for dose reduction was used. TECHNIQUE: CT scan of the head and cervical spine are performed without contrast. FINDINGS: There is no acute intracranial hemorrhage, mass, mass effect, midline shift, extra-axial fluid collections or acute major vessel infarct. There is significant hydrocephalus which is similar to the previous examination. Ventricular peritoneal shunt catheter has its tip in the frontal aspect of the left lateral ventricle. This comes from a right approach. Straightening of the normal cervical lordosis is seen. Posterior spinal fusion is seen between C4 and C7. Laminectomies are also seen at these levels. Scattered degenerative disc changes are seen throug hout the spine. There is no acute fracture, subluxation or dislocation. There is no prevertebral soft tissue swelling. IMPRESSION: 1. No acute intracranial process. 2. Unchanged significant hydrocephalus. 3. Surgical changes within the spine with no acute osseous abnormalities.
--- NOTE | 2023-09-21 16:19 | XR ---
Two-view right forearm. DATE: 03/21/2024. COMPARISON: None available. CLINICAL HISTORY: Abrasion after fall. IMPRESSION: No fractures are seen. No definitive soft tissue abnormalities are seen.
[2023-09-21] MEDS: BACITRACIN OINT 1 EACH PACKET TOPICAL ONE (16:42)
--- NOTE | 2023-09-21 16:48 | ED ---
Fall HPI - General Chief Complaint: Fall Stated Complaint: Fall Time Seen by Provider: 09/21/23 14:15 Source: patient, EMS Mode of arrival: EMS - History of Present Illness Initial Comments: 78-year-old male with past medical history of hydrocephalus who presents emergency department after a fall. States he fell out of bed and hit his head on the carpeted ground. Patient presents with an abrasion to his forehead and right arm. He admits to a mild headache. No arm pain. He does have a history of hydrocephalus. Family is at bedside and is concerned about the patient's s diaz due to his head injury. He was not given anything for pain control. Patient has no confusion or speech difficulties. Normally has mild confusion at baseline because of his hydrocephalus but at this time presents at his baseline. He denies any neck or back pain. No other alleviating, precipitating modifying factors - Related Data Home Medications Medication Instructions Recorded Confirmed Acetaminophen Tab [Tylenol] 650 mg PO TID@0700,1300,2000 11/05/19 09/18/22 Escitalopram [Lexapro] 10 mg PO DAILY 11/05/19 09/18/22 Artificial Tears-Hypromellose 1 drop BOTH EYES Q8H PRN 09/18/22 09/18/22 [Artificial Tear Drops] Cholecalciferol [Vitamin D3 (25 100 mcg PO DAILY@1600 09/18/22 09/18/22 Mcg = 1000 Iu)] Losartan Potassium 50 mg PO DAILY 09/18/22 09/18/22 Magnesium Hydroxide [Milk of 2,400 mg PO Q72H PRN 09/18/22 09/18/22 Magnesia] Melatonin 3 mg PO HS 09/18/22 09/18/22 Sennosides/Docusate Sodium [Senna 1 cap PO BID 09/18/22 09/18/22 Plus 8.6-50 mg Softgel] amLODIPine [Norvasc] 5 mg PO HS 09/18/22 09/18/22 Previous Rx's Medication Instructions Recorded Albuterol Nebulized [Ventolin 2.5 mg INHALATION RT-QID ml 09/22/22 Nebulized] Amoxic-Pot Clav 875-125Mg 1 tab PO Q12HR 7 Days #14 tab 09/22/22 [Augmentin 875-125] Folic Acid 1 mg PO DAILY@1200 tab 09/22/22 Gabapentin [Neurontin] 100 mg PO HS #3 cap 09/22/22 Multivitamins, Thera [Multivitamin 1 each PO DAILY@1200 tab 09/22/22 (formulary)] Thiamine [Vitamin B-1] 100 mg PO DAILY@1200 tab 09/22/22 Allergies Allergy/AdvReac Type Severity Reaction Status Date / Time No Known Allergies Allergy Verified 01/08/23 14:21 Review of Systems ROS Statement: Those systems with pertinent positive or pertinent negative responses have been documented in the HPI. ROS Other: All systems not noted in ROS Statement are negative. Past Medical History Past Medical History: CVA/TIA, Diabetes Mellitus, GERD/Reflux, Hyperlipidemia, Hypertension Additional Past Medical History / Comment(s): neuropathy, hydrocephalus, bursitis of hip, neck pain, diabetes type 2, protate mass, muscle weakness, CKD stage 3, Gout, Alzheimers, History of Any Multi-Drug Resistant Organisms: None Reported Past Surgical History: Back Surgery, Ventriculoperitoneal Shunt Additional Past Surgical History / Comment(s): brain shunt, neck fusion L3-5 Past Anesthesia/Blood Transfusion Reactions: No Reported Reaction Past Psychological History: No Psychological Hx Reported, Depression Smoking Status: Never smoker Past Alcohol Use History: None Reported Past Drug Use History: None Reported - Past Family History Father Family Medical History: No Reported History General Exam Limitations: altered mental status General appearance: alert, in no apparent distress Head exam: Present: other (Abrasion 8 x 5 across his frontal forehead. Not actively bleeding) Eye exam: Present: normal appearance, PERRL, EOMI. Absent: scleral icterus, conjunctival injection, periorbital swelling ENT exam: Present: normal exam, mucous membranes moist Neck exam: Present: normal inspection. Absent: tenderness, meningismus, lymphadenopathy Respiratory exam: Present: normal lung sounds bilaterally. Absent: respiratory distress, wheezes, rales, rhonchi, stridor Cardiovascular Exam: Present: regular rate, normal rhythm, normal heart sounds. Absent: systolic murmur, diastolic murmur, rubs, gallop, clicks GI/Abdominal exam: Present: soft, normal bowel sounds. Absent: distended, tenderness, guarding, rebound, rigid Extremities exam: Present: normal inspection, full ROM, normal capillary refill. Absent: tenderness, pedal edema, joint swelling, calf tenderness Back exam: Present: normal inspection Neurological exam: Present: alert, oriented X3, CN II-XII intact Psychiatric exam: Present: normal affect, normal mood Skin exam: Present: warm, dry, abrasion (Right forearm 3 x 2 cm. Not actively bleeding). Absent: rash Course Vital Signs 09/21/23 14:03 Temperature 98.3 F Pulse Rate 94 Respiratory 18 Rate Blood Pressure 135/74 O2 Sat by Pulse 97 Oximetry Medical Decision Making - Medical Decision Making Was pt. sent in by a medical professional or institution ([facility], [facility], urgent care, hospital, or assisted...) When possible be specific @ -Yes patient sent in from rehab facility Did you speak to anyone other than the patient for history (EMS, parent, family, police, friend...)? What history was obtained from this source @ -Spoke with the patient's son Did you review nursing and triage notes (agree or disagree)? Why? @ -I reviewed and agree with nursing and triage notes Were old charts reviewed (outside hosp., previous admission, EMS record, old EKG, old radiological studies, urgent care reports/EKG's, assisted records)? Report findings @ -I reviewed transfer packet from rehab facility Differential Diagnosis (chest pain, altered mental status, abdominal pain women, abdominal pain men, vaginal bleeding, weakness, fever, dyspnea, syncope, headache, dizziness, GI bleed, back pain, seizure, CVA, palpatations, mental health, musculoskeletal)? @ -Skull fracture, subdural, subarachnoid, concussion EKG interpreted by me (3pts min.). @ -Not done X-rays interpreted by me (1pt min.). @ -Yes and demonstrates no acute fractures CT interpreted by me (1pt min.). @ -Yes and demonstrates no acute intracranial injuries U/S interpreted by me (1pt. min.). @ -None done What testing was considered but not performed or refused? (CT, X-rays, U/S, labs)? Why? @ -None What meds were considered but not given or refused? Why? @ -None Did you discuss the management of the patient with other professionals (prof jessicas i.e. [facility], [facility], lab, RT, psych nurse, social media assistant, punch press operator helper, teacher, environmental officer, block and case maker)? Give summary @ -No Was smoking cessation discussed for >3mins.? @ -No Was critical care preformed (if so, how long)? @ -No Were there social determinants of health that impacted care today? How? (Homelessness, low income, unemployed, alcoholism, drug addiction, transportation, low edu. Level, literacy, decrease access to med. care, fpc, rehab)? @ -Patient resides in rehab Was there de-escalation of care discussed even if they declined (Discuss DNR or withdrawal of care, Hospice)? DNR status @ -No What co-morbidities impacted this encounter? (DM, HTN, Smoking, COPD, CAD, Cancer, CVA, ARF, Chemo, Hep., AIDS, mental health diagnosis, sleep apnea, morbid obesity)? @ -Hydrocephalus with shunt placement Was patient admitted / discharged? Hospital course, mention meds given and route, prescriptions, significant lab abnormalities, going to OR and other pertinent info. @ -Discharged. Upon arrival patient is placed in the hallway 10. Thorough history and physical exam was performed. Patient given Tylenol for pain. Patient goes for CT of his head and cervical spine. Also has a right arm x-ray performed. Results are discussed with the patient. He remained alert and oriented throughout his stay without signs of confusion. Patient will be discharged back to his rehab facility. Son was in agreement with this. His wounds are dressed and patient discharged in stable condition Undiagnosed new problem with uncertain prognosis? @ -No Drug Therapy requiring intensive monitoring for toxicity (Heparin, Nitro, Insulin, Cardizem)? @ -No Were any procedures done? @ -No Diagnosis/symptom? @ -Acute fall out of bed, acute forehead abrasion, blunt head trauma, right forearm abrasion, history of hydrocephalus with MANAGER FRONT shunt Acute, or Chronic, or Acute on Chronic? @ -Acute Uncomplicated (without systemic symptoms) or Complicated (systemic symptoms)? @ -Complicated Side effects of treatment? @ -No Exacerbation, Progression, or Severe Exacerbation? @ -No Poses a threat to life or bodily function? How? (Chest pain, USA, PA, pneumonia, PE, COPD, DKA, ARF, appy, cholecystitis, CVA, Diverticulitis, Homicidal, Suicidal, threat to staff... and all critical care pts) @ -No Disposition Clinical Impression: Fall, Blunt head injury, Forehead abrasion, Arm abrasion, Hydrocephalus Disposition: HOME SELF-CARE Condition: Stable Instructions (If sedation given, give patient instructions): Head Injury (DC), Fall Prevention (ED) Additional Instructions: Please follow-up with your primary care doctor and return for any new or worsening symptoms Is patient prescribed a controlled substance at d/c from ED?: No Referrals: Balaji Castillo DO [Primary Care Provider] - 1-2 days Time of Disposition: 16:47
== END 2023-09-21 17:42 | disposition home or self-care (01) ==
LOC: EC 13:55
DX: S00.81XA Abrasion of other part of head, initial encounter (principal); S40.811A Abrasion of right upper arm, initial encounter; G91.9 Hydrocephalus, unspecified; E11.22 Type 2 diabetes mellitus with diabetic chronic kidney disease; E11.40 Type 2 diabetes mellitus with diabetic neuropathy, unspecified; E78.5 Hyperlipidemia, unspecified; I12.9 Hypertensive chronic kidney disease with stage 1 through stage 4 chronic kidney disease, or unspecified chronic kidney disease; K21.9 Gastro-esophageal reflux disease without esophagitis; N18.30 Chronic kidney disease, stage 3 unspecified; Z79.899 Other long term (current) drug therapy; W06.XXXA Fall from bed, initial encounter
CPT/HCPCS: 70450; 72125; 99285